=== PATIENT | female | born 2000 | race Caucasian/White ===

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

== ENCOUNTER 2023-04-10 18:23 | Emergency (ER) | payer OTHER ==
[~2023-04-10] VITALS: Ht 175.3 cm; Wt 86.2 kg
[~2023-04-10 18:23] MED LIST changes: +PROM12.5S PR; +RIZATRIPTAN10 MG SL; +TOPI25 PO
[2023-04-10 18:36] VITALS: BP 124/81
[2023-04-10 19:48] LABS: Source, Urine Clean Catch
[2023-04-10 19:51] LABS: Appearance, Urine Clear (Clear); Bilirubin, Urine Neg (Neg); Blood, Urine Neg (Neg); Color, Urine Yellow (P-Yellow); Glucose Qualitative, Urine Neg (Neg); Ketones, Urine Neg (Neg); Leukocyte Esterase, Urine 3+ (Neg); Nitrite, Urine Neg (Neg); Protein, Urine Neg (Neg); Specific Gravity, Urine 1.005 (1.003-1.022); Urobilinogen, Urine NORM (Normal)
[2023-04-10 20:02] LABS: Bacteria Mod /hpf; Squamous Epithelial Cells Few /hpf (Few); White Blood Cells, Urine 25-50 /hpf (0-5)
== END 2023-04-10 20:43 | disposition left against medical advice (07) ==
LOC: ER 18:23
PROVIDERS: Student in an Organized Health Care Education/Training Program
DX: R10.30 Lower abdominal pain, unspecified (principal); Z53.29 Procedure and treatment not carried out because of patient's decision for other reasons
CPT/HCPCS: 81001

== ENCOUNTER 2023-12-19 20:33 | Emergency (ER) | payer OTHER ==
[~2023-12-19] VITALS: Ht 172.7 cm; Wt 81.7 kg
[2023-12-19 20:39] VITALS: BP 128/65
[2023-12-19 21:48] LABS: Influenza A, PCR NEGATIVE (NEGATIVE); Influenza B, PCR NEGATIVE (NEGATIVE); Resp Syncytial Virus, PCR NEGATIVE (NEGATIVE); SARS-Cov-2 (COVID-19) PCR, MMC NEGATIVE (NEGATIVE)
[2023-12-19] MEDS ORDERED: Tessalon200 MG PO (23:16)
== END 2023-12-19 23:28 | disposition home or self-care (01) ==
LOC: ER 20:33
PROVIDERS: Student in an Organized Health Care Education/Training Program
DX: J40 Bronchitis, not specified as acute or chronic (principal); F17.290 Nicotine dependence, other tobacco product, uncomplicated; Z11.52 Encounter for screening for COVID-19
CPT/HCPCS: 0241U; 71046; 87081; 87430; 99283-25

== ENCOUNTER 2023-12-26 13:04 | Emergency (ER) | payer OTHER ==
[~2023-12-26] VITALS: Ht 175.3 cm; Wt 83.9 kg
[~2023-12-26 13:04] MED LIST changes: +Tessalon200 MG PO
[2023-12-26 13:15] VITALS: BP 124/80
[2023-12-26] MEDS ORDERED: Dexamethasone Sod Phos 10 MG/ML 1ML VIAL PO ONE (14:40)
== END 2023-12-26 14:59 | disposition home or self-care (01) ==
LOC: ER 13:04
DX: J40 Bronchitis, not specified as acute or chronic (principal); Z79.899 Other long term (current) drug therapy
CPT/HCPCS: 71046; 87081; 87430; 99283-25; J1100